=== PATIENT | male | born 1985 | race Caucasian/White ===

== ENCOUNTER 2016-08-27 05:53 | Emergency (ER) | payer OTHER ==
[~2016-08-27] VITALS: Ht 190.5 cm; Wt 99.7 kg
[2016-08-27 05:55] VITALS: BP 142/79
[2016-08-27] MEDS ORDERED: PREDNISONE20 MG PO (06:41)
== END 2016-08-27 07:04 | disposition home or self-care (01) ==
LOC: EME 05:53
DX: L23.7 Allergic contact dermatitis due to plants, except food (principal); F17.200 Nicotine dependence, unspecified, uncomplicated
CPT/HCPCS: 99281; 99283; J2930